=== PATIENT | male | born 1960 | race Caucasian/White ===

== ENCOUNTER 2018-01-05 09:31 | Emergency (ER) | END 2018-01-05 11:58 | disposition home or self-care (01) ==

== ENCOUNTER 2018-02-03 12:17 | Emergency (ER) | END 2018-02-03 20:05 | disposition home or self-care (01) ==

== ENCOUNTER 2018-08-31 00:32 | Emergency (ER) | payer SELFPAY ==
[~2018-08-31] VITALS: Ht 182.9 cm; Wt 79.7 kg
[~2018-08-31 00:32] MED LIST: CEPH-443 PO; HYDR-4011 PO; NITR-58 PO; SULF1TAB31 PO; ZOF8 PO
[2018-08-31 00:45] VITALS: Ht 182.9 cm; Wt 79.7 kg
== END 2018-08-31 07:21 | disposition left against medical advice (07) ==
LOC: E/R 00:32
DX: Z53.21 Procedure and treatment not carried out due to patient leaving prior to being seen by health care provider (principal)

== ENCOUNTER 2018-10-16 16:33 | Emergency (ER) | payer OTHER ==
[~2018-10-16] VITALS: Ht 182.9 cm; Wt 84.1 kg
[2018-10-16 16:50] VITALS: Ht 182.9 cm; Wt 84.1 kg
[2018-10-16] MEDS ORDERED: HYDROCODONE/APAP (5/325) TAB PO ONE (17:30)
[2018-10-16] MEDS ORDERED: CIPROFLOXACIN 500 MG TAB PO ONE (17:30)
[2018-10-16] MEDS ORDERED: HYDR-4011 PO (18:05)
[2018-10-16] MEDS ORDERED: CIPR500T4 PO (18:05)
--- NOTE | 2018-10-16 18:07 | ERD ---
ER Documentation Chief Complaint Chief Complaint catheter problem HPI 58-year-old male presents with a history of prostatism. He has had intermittent catheterization over the last 6 months. The longest he has gone without a catheter is 3 days. He does have some burning and suprapubic pain over the last 2 days. Denies any fevers or vomiting. He is awaiting definitive treatment by urology, possibly surgery. ROS All systems reviewed and are negative except as per history of present illness. Medications Home Meds Active Scripts Hydrocodone/Acetaminophen ([place] 5-325 Tablet) 1 Each Tablet, 1 TAB PO Q6H PRN for PAIN, #7 TAB Prov:ZENA AGUILA MD 10/16/18 Ciprofloxacin Hcl* (Ciprofloxacin Hcl*) 500 Mg Tablet, 500 MG PO BID for 7 Days, TAB Prov:ZENA AGUILA MD 10/16/18 Hydrocodone/Acetaminophen ([place] 5-325 Tablet) 1 Each Tablet, 1 TAB PO Q6H PRN for PAIN, #4 TAB Prov:MASOUD DNUN MD 02/03/18 Ondansetron Hcl* (Zofran*) 8 Mg Tab, 8 MG PO Q6H PRN for NAUSEA AND OR VOMITING, #20 TAB Prov:MASOUD DUNN MD 02/03/18 Nitrofurantoin Monohyd Macrocr* (Macrobid*) 100 Mg Capsr, 100 MG PO BID for 14 Days, CAP Prov:MASOUD DUNN MD 02/03/18 Hydrocodone/Acetaminophen ([place] 5-325 Tablet) 1 Each Tablet, 1 TAB PO Q6H PRN for PAIN, #7 TAB Prov:MILAGROS HUMPHRIES-C 01/05/18 Cephalexin* (Keflex*) 500 Mg Capsule, 500 MG PO QID for 10 Days, CAP Prov:MILAGROS HUMHPRIES-C 01/05/18 Sulfamethoxazole/Trimethoprim* (Bactrim Ds* Tablet) 1 Each Tablet, 1 TAB PO BID for 10 Days, #20 TAB Prov:MILAGROS HUMPHRIES-C 01/05/18 Allergies Allergies: Coded Allergies: No Known Allergy (Unverified , 01/05/18) PMhx/Soc History of Surgery: Yes (hernia, hydrocele;arm surgery) Anesthesia Reaction: No Hx Neurological Disorder: No Hx Respiratory Disorders: No Hx Cardiac Disorders: No Hx Psychiatric Problems: No Hx Miscellaneous Medical Probl: Yes (prostate hypertrophy, urinary retention) Hx Alcohol Use: No Hx Substance Use: No Hx Tobacco Use: No Smoking Status: Never smoker FmHx Family History: No diabetes, No coronary disease, No other Physical Exam Vitals Vital Signs Date Temp Pulse Resp B/P (MAP) Pulse Ox O2 O2 Flow FiO2 Time Delivery Rate 10/16/18 98.6 88 18 133/69 98 16:50 (90) Physical Exam Const: No acute distress Head: Atraumatic Eyes: Normal Conjunctiva ENT: Normal External Ears, Nose and Mouth. Neck: Full range of motion. No meningismus. Resp: Clear to auscultation bilaterally Cardio: Regular rate and rhythm, no murmurs Abd: Soft, non tender, non distended. Normal bowel sounds Skin: No petechiae or rashes Back: No midline or flank tenderness Ext: No cyanosis, or edema Neur: Awake and alert Psych: Normal Mood and Affect Results 24 hrs Laboratory Tests Test 10/16/18 17:35 Urine Color YELLOW Urine Clarity SLIGHTLY CLOUDY Urine pH 7.0 Urine Specific [place] 1.018 Urine Ketones NEGATIVE mg/dL Urine Nitrite POSITIVE mg/dL Urine Bilirubin NEGATIVE mg/dL Urine Urobilinogen NEGATIVE mg/dL Urine Leukocyte Esterase 3+ Iesha/ul Urine Microscopic RBC 55 /HPF Urine Microscopic WBC 142 /HPF Urine Bacteria FEW /HPF Urine Hemoglobin 2+ mg/dL Urine Glucose NEGATIVE mg/dL Urine Total Protein NEGATIVE mg/dl Current Medications Medications Dose Sig/Chantel Start Time Status Last (Trade) Ordered Route PRN Stop Time Admin Dose Reason Admin 1 tab ONCE ONCE 10/16/18 DC 10/16/18 Acetaminophen PO 17:30 17:21 / 10/16/18 17:31 Hydrocodone Bitart ([place] (5/325)) 500 mg ONCE ONCE 10/16/18 DC 10/16/18 Ciprofloxacin PO 17:30 17:21 (Cipro) 10/16/18 17:31 Procedures/MDM Cath urine shows white blood cells and red blood cells and positive nitrites. Urine sent for culture. Steele catheter was replaced. Patient was given Cipro and [place] 5 mg by mouth. Patient presents with dysuria and suprapubic pain in the presence of chronic Steele catheter. He likely has UTI. Is no signs of abdominal pain, sepsis, additional concerning signs or symptoms. Will treat with Cipro, less than 5-day supply of [place], continue urology follow-up, return precautions for fevers, vomiting, abdominal pain, new worsening symptoms. The patient was stable with no new complaints during the ER course. Clinically, there is no current evidence to suggest meningitis, sepsis, acute abdomen, pneumonia, stroke, acute coronary syndrome, pulmonary embolism, aortic dissection or any other emergent condition appearing to require further evaluation or hospitalization. Patient counseled regarding my diagnostic impre ssion and care plan. Prior to discharge all questions answered. Pt agrees with treatment plan and understands strict return precautions. Pt is instructed to follow up with primary care provider within 24-48 hours. Precautionary instructions provided including instructions to return to the ER if not improving or for any worsening or changing symptoms or concerns. Departure Diagnosis: Primary Impression: UTI (urinary tract infection) Urinary tract infection type: acute cystitis Hematuria presence: without hematuria Qualified Codes: N30.00 - Acute cystitis without hematuria Additional Impression: Complication of catheter Encounter type: initial encounter Qualified Codes: T85.9XXA - Unspecified complication of internal prosthetic device, implant and graft, initial encounter Condition: Stable Patient Instructions: Catheter-Associated Urinary Tract Infections, Understanding Urinary Tract Infections (UTIs) Additional Instructions: Recheck for fevers, vomiting, abdominal pain, new worsening symptoms with primary doctor. Follow-up with urology as scheduled. ZENA AGUILA MD Oct 16, 2018 18:07
== END 2018-10-16 18:17 | disposition home or self-care (01) ==
LOC: FTE 16:33
DX: N30.00 Acute cystitis without hematuria (principal); Y73.2 Prosthetic and other implants, materials and accessory gastroenterology and urology devices associated with adverse incidents
CPT/HCPCS: 51702; 81001; 87086; Z7502; Z7610